=== PATIENT | male | born 1950 | race Caucasian/White ===

== ENCOUNTER 2017-11-06 12:02 | Emergency (ER) | payer MEDICARE, SELFPAY ==
[2017-11-06 12:17] VITALS: BP 167/74; PULSE 88; RESP 18; TEMP 36.8; O2SAT 98; BMI 23.6
--- NOTE | 2017-11-06 12:21 | ED.MALEGU ---
HPI - Male Genitourinary <JADE Wall - Last Filed: 11/06/17 20:20> General Chief complaint: Urogenital-Male Stated complaint: I have a UTI Time Seen by Provider: 11/06/17 12:20 Source: patient Mode of arrival: ambulatory Limitations: no limitations History of Present Illness HPI Narrative: 67-year-old male with history of AFib that is a nonsmoker here for complaint of having increased urinary frequency and some dysuria over the past 4 days. He states he is concerned that he may have a urinary tract infection. He denies having a prior history having urinary tract infections. He denies any flank pain. No abdominal pain. No nausea vomiting. He states that he is drinking plenty of fluids and is tolerating them well. He denies any other concerns or complaints at this time. Related Data Home Medications Medication Instructions Recorded Confirmed aspirin 81 mg PO QDAY #0 07/26/16 atorvastatin [Lipitor] 10 mg PO QDAY #0 07/26/16 esomeprazole magnesium [Nexium] 40 mg PO QDAY #0 07/26/16 Previous Rx's Medication Instructions Recorded nitrofurantoin monohyd/m-cryst 100 mg PO BID #14 cap 11/06/17 [Macrobid] Allergies Allergy/AdvReac Type Severity Reaction Status Date / Time No Known Drug Allergies Allergy Verified 11/06/17 12:53 Review of Systems <JADE Wall - Last Filed: 11/06/17 20:20> Constitutional Denies chills, Denies fever(s), Denies lethargy and Denies weakness Eyes Denies change in vision, Denies eye discharge, Denies irritation and Denies loss of vision ENT Ears, Nose, Mouth, and Throat: Denies change in voice, Denies neck pain and Denies sore throat Cardiovascular Denies chest pain, Denies irregular heart rhythm, Denies lightheadedness, Denies palpitations, Denies dyspnea, Denies dyspnea on exertion and Denies orthopnea Respiratory Denies cough, Denies dyspnea, Denies dyspnea on exertion and Denies wheezing Gastrointestinal Gastrointestinal: Denies abdominal pain, Denies change in bowel habits, Denies diarrhea, Denies nausea and Denies vomiting Genitourinary Reports dysuria and Reports urinary frequency Musculoskeletal Denies neck pain Integumentary/Breasts Denies pruritus, Denies erythema, Denies rash and Denies wounds Neurologic Denies confusion, Denies loss of vision and Denies weakness Psychiatric Denies anxiety, Denies confusion, Denies depression, Denies homicidal ideation and Denies suicidal ideation Endocrine Denies palpitations Allergic/Immunologic Denies wheezing Exam <JADE Wall - Last Filed: 11/06/17 20:20> Initial Vital Signs Initial Vital Signs: Vital Signs Temperature 98.3 F 11/06/17 12:17 Pulse Rate 88 11/06/17 12:17 Respiratory Rate 18 11/06/17 12:17 Blood Pressure 167/74 H 11/06/17 12:17 Pulse Oximetry 98 11/06/17 12:17 Const General: cooperative and well developed Nutritional Appearance: well nourished Orientation: alert, awake, oriented x3 and not confused HENMT Mouth: oral mucosae normal and moist mucous membranes Eyes Conjunctivae: conjunctivae normal Sclera: sclerae normal Pupils: PERRL EOM: EOM intact bilaterally Resp Effort & Inspection: normal respiratory effort, able to speak in complete sentences, no respiratory distress and no use of accessory muscles Auscultation: clear to auscultation bilaterally, no rales, no rhonchi and no wheezes Cardio Rate: regular rate Rhythm: regular rhythm Heart Sounds: no click, no gallops, no murmurs and no rubs GI Inspection: non-distended Palpation: soft, no hepatosplenomegaly, No guarding, No pulsatile mass and No tender Auscultation: normal bowel sounds General: No CVA tenderness Skin General: no rashes or lesions noted, No jaundice and No petechiae Neuro General: alert, oriented x3, gait normal and no focal motor deficits Speech: speech normal <Herbert Cortez DO - Last Filed: 11/07/17 05:41> Initial Vital Signs Initial Vital Signs: Vital Signs Temperature 98.3 F 11/06/17 12:17 Pulse Rate 88 11/06/17 12:17 Respiratory Rate 18 11/06/17 12:17 Blood Pressure 167/74 H 11/06/17 12:17 Pulse Oximetry 98 11/06/17 12:17 Course <JADE Wall - Last Filed: 11/06/17 20:20> Orders Ordered: ED Orders 11/06/17 12:18 Urine Culture Stat Urine Microscopic Stat Vital Signs - 8 hr 11/06/17 12:17 Temperature 98.3 F Pulse Rate 88 Respiratory Rate 18 Blood Pressure 167/74 H Pulse Oximetry 98 <Herbert Cortez DO - Last Filed: 11/07/17 05:41> Orders Ordered: ED Orders 11/06/17 12:18 Urine Culture Stat Urine Microscopic Stat Vital Signs - 8 hr 11/06/17 12:17 Temperature 98.3 F Pulse Rate 88 Respiratory Rate 18 Blood Pressure 167/74 H Pulse Oximetry 98 MDM - Male Genitourinary <JADE Wall - Last Filed: 11/06/17 20:20> Differential Diagnosis Likely urinary tract infection Lab Data Lab Results 11/06/17 Range/Units 12:18 Urine RBC None seen (0-5/HPF) Urine WBC 5-10/hpf H (0-5/HPF) Ur Squamous Epith Cells 0-1 /hpf Urine Bacteria Moderate (10-30) H (None) Ur Culture Indicated? Specimen cultured Micro UA Comment Not Reportable Urine Dip Bedside Urine Glucose Negative Bedside Urine Bilirubin - Negative Bedside Urine Ketone - Negative Urine Specific [place] 1.030 Bedside Urine Occult Blood - Negative Bedside Urine pH 6.0 Bedside Urine Protein +/- 15 Bedside Urine Urobilinogen - Negative Bedside Urine Nitrite - Negative Bedside Urine Leukocytes - Negative Esterase MDM Narrative Medical decision making narrative: Urinalysis indicates elevated white count. He is treated for urinary tract infection with Macrobid. Plenty of fluids. Follow up with primary care provider. For any worsening symptoms return to the emergency room. <Herbert Cortez DO - Last Filed: 11/07/17 05:41> Lab Data Lab Results 11/06/17 Range/Units 12:18 Urine RBC None seen (0-5/HPF) Urine WBC 5-10/hpf H (0-5/HPF) Ur Squamous Epith Cells 0-1 /hpf Urine Bacteria Moderate (10-30) H (None) Ur Culture Indicated? Specimen cultured Micro UA Comment Not Reportable Urine Dip Bedside Urine Glucose Negative Bedside Urine Bilirubin - Negative Bedside Urine Ketone - Negative Urine Specific [place] 1.030 Bedside Urine Occult Blood - Negative Bedside Urine pH 6.0 Bedside Urine Protein +/- 15 Bedside Urine Urobilinogen - Negative Bedside Urine Nitrite - Negative Bedside Urine Leukocytes - Negative Esterase Discharge Plan Departure Patient Disposition: Home Clinical Impression: Urinary tract infection Discharge Date/Time: 11/06/17 13:14 Interventions: ED Discharge Assessment Last Done: 11/06/17 13:13 Instructions: Urinary Tract Infection Activity Restrictions/Additional Instructions: Urinalysis indicates an elevated white count suggestive of urinary tract infection. UA placed on an antibiotic called Macrobid use as directed. Plenty of fluids. Follow up with her primary care provider. For any worsening symptoms return to the emergency room. Prescriptions: New nitrofurantoin monohyd/m-cryst [Macrobid] 100 mg capsule 100 mg PO BID Qty: 14 RF: 0 No Action atorvastatin [Lipitor] 10 MG tablet 10 mg PO QDAY Qty: 0 RF: 0 aspirin 81 MG tablet,delayed release (DR/EC) 81 mg PO QDAY Qty: 0 RF: 0 esomeprazole magnesium [Nexium] 40 MG capsule,delayed release(DR/EC) 40 mg PO QDAY Qty: 0 RF: 0 Referrals: Carissa Preciado PA-C [Primary Care Provider] - <Herbert Cortez DO - Last Filed: 11/07/17 05:41> Cosign ED Attending Anuja Attestation: I was immediately available in the department for consultation. Documentation has been reviewed. I agree with assessment and plan.
[2017-11-06 12:46] LABS: Bacteria Urine Moderate (10-30); Culture Indicated Urine Specimen Cultured; RBC Urine None Seen (0-5/HPF); Squamous Epithelial Cell Urine 0-1 /HPF; WBC Urine 5-10/HPF (0-5/HPF)
== END 2017-11-06 13:14 | disposition home or self-care (01) ==
PROVIDERS: Emergency Provider Nurse Practitioner Family; Family Provider Physical Therapist; PCP Physician Assistant
DX: N39.0 Urinary tract infection, site not specified (principal)
CPT/HCPCS: 81003; 81015; 87077; 87086; 87186; 99282

== ENCOUNTER 2024-02-11 14:53 | Emergency (ER) | payer MEDICARE, SELFPAY ==
[2024-02-11] VITALS (32 sets, daily range): BP systolic 147–200; BP diastolic 72–93; PULSE 66–93; RESP 14–32; TEMP 36.8; O2SAT 95–98; BMI 23.4
--- NOTE | 2024-02-11 15:00 | DI.RAD.S_ITS ---
PROCEDURE: XR CHEST 1V INDICATIONS: chest pain TECHNIQUE: One view of the chest was acquired. COMPARISON: [facility], , CHEST 2 VIEW, 12/29/2015, 9:16. FINDINGS: Surgical changes and devices: None. Lungs and pleura: Lungs are clear. No pleural effusions or pneumothorax. Mediastinum: Mediastinal contours appear normal. Heart size is normal. Bones and chest wall: No suspicious bony lesions. Overlying soft tissues appear unremarkable. IMPRESSION: No acute cardiopulmonary abnormality is seen. Approved by: Erick Harris M.D. on 02/11/2024 at 16:03
--- NOTE | 2024-02-11 15:04 | EKG_ITS ---
Merged With [facility] [address] [place] [address] Test Date: 2024-02-11 Pat Name: Sunil So Department: Room: Gender: Male [employer] Machine Operator: : 1950 Requested By: Order Number: [id number] Reading MD: Carl Valle MD Measurements Intervals [place] Rate: 79 P: 50 IA: 162 QRS: 14 QRSD: 90 T: 35 QT: 370 QTc: 424 Interpretive Statements Normal sinus rhythm Electronically Signed On 02-12-2024 17:06:24 PST by Carl Valle MD
[2024-02-11 15:08] LABS: Add Manual Diff / Slide Review NO; Basophils Absolute Auto 0 /uL (0-100); Basophils Percent Auto 0.5 % (0-2); Eosinophils Absolute Auto 100 /uL (0-450); Eosinophils Percent Auto 0.9 % (2-4); Hematocrit 43.5 % (41-53); Hemoglobin 14.8 g/dL (13.5-17.5); Lymphocytes Absolute Auto 2100 /uL (1100-4500); Mean Corpuscular Hemoglobin 31.1 PG (26-34); Mean Corpuscular Volume 91.6 fL (80-100); Monocytes Absolute Auto 600 /uL (0-900); Neutrophils Absolute Auto 3400 /uL (1500-7000); Neutrophils Percent Auto 54.6 % (50-75); Platelet Count 204 X10^3/uL (150-400); Red Blood Cell Count 4.74 X10^6/uL (4.5-5.9); Red Cell Distribution Width 13.9 % (11.6-14.8); White Blood Cell Count 6.2 X10^3/uL (4.5-11.0)
--- NOTE | 2024-02-11 15:11 | ED.GENADULT ---
HPI - General Adult General Chief complaint: Hypertension Stated complaint: High BP, Unsteady on Feet Time Seen by Provider: 02/11/24 15:03 History of Present Illness HPI narrative: 73-year-old gentleman with a history of reflux, hyperlipidemia, family history for coronary artery disease and no personal history of hypertension awoke just generally feeling unwell this morning and noted that his blood pressure has been significantly elevated over the course of the day. He complains that he feels slightly unsteady and also nights that he has had some left eye blurriness for the last week. Not complaining of headache or other neurologic complaints. When asked specifically about chest pain he states that he has not having any pain but there seems to be more awareness of his chest than usual. No diaphoresis, nausea, vomiting. He has never had similar symptoms. He has a history of atrial fibrillation and had an ablation in June he takes metoprolol for rate control. Related Data Home Medications Medication Instructions Recorded Confirmed aspirin 81 mg tablet,delayed 81 mg PO QDAY ##0 07/26/16 release atorvastatin 10 mg tablet (Lipitor) 10 mg PO QDAY ##0 07/26/16 esomeprazole magnesium 40 mg 40 mg PO QDAY ##0 07/26/16 capsule,delayed release (Nexium) Previous Rx's Medication Instructions Recorded nitrofurantoin 100 mg PO BID #14 caps 11/06/17 monohydrate/macrocrystals 100 mg capsule (Macrobid) Allergies Allergy/AdvReac Type Severity Reaction Status Date / Time No Known Drug Allergies Allergy Verified 11/06/17 12:53 Review of Systems Review of Systems Narrative: Pertinent positive and negative findings as per HPI Patient History Medical History (Updated 02/11/24 @ 17:26 by Krissy Padgett MD) Afib Social History Smoking Status: Never smoker Smoking Status: Never smoker alcohol intake frequency: 0-2 drinks per day Alcohol type: wine and hard liquor Exam Initial Vital Signs Initial Vital Signs: Vital Signs Pulse Rate 80 02/11/24 14:58 Blood Pressure 200/92 H 02/11/24 14:58 Pulse Oximetry 98 02/11/24 14:58 General: Healthy appearing, in no acute distress. Able to give a complete and coherent history. Well-nourished well-developed HEENT: Moist mucous membranes, normal sclera with reactive pupils, he reports decreased vision in the left eye with no specific hemianopsia and no peripheral field deficits. Neck: No JVD, supple Respiratory: Lungs are clear to auscultation, no wheezing no rales no rhonchi. Full and symmetrical air movement Cardiac: Regular rate and rhythm no murmurs no bruits Abdomen: Soft, nontender, good bowel tones, no flank pain Skin: Warm and dry, no rashes Neurologic: Grossly neurologically intact with no obvious asymmetries or abnormalities. NIH=0 Extremities: No trauma, well perfused Psych: Cooperative, appropriate insight and affect Course Orders Ordered: ED Orders 02/11/24 15:00 XR chest 1V Stat Complete Blood Count AUTO DIFF Stat Comprehensive Metabolic Panel Stat Lipase Stat Magnesium Stat NT-proBNP (BNP-Adult 18+) Stat PTT Partial Thromboplastin Maximino Stat Prothrombin Time INR Stat Troponin & CK Cardiac Panel Stat EKG-12 Lead Stat 02/11/24 15:17 CT head/brain wo con Stat Discontinued Medications Aspirin (Aspirin 81 Mg Chew Tab) 324 mg PO NOW ONE Stop: 02/11/24 15:01 Last Admin: 02/11/24 15:22 Dose: 243 mg Documented By: RED Labetalol HCl (Labetalol 20 Mg/4 Ml Syringe) 20 mg IV NOW ONE Stop: 02/11/24 15:18 Last Admin: 02/11/24 15:23 Dose: 20 mg Documented By: RED Vital Signs Vital signs: Vital Signs - 8 hr 02/11/24 14:58 02/11/24 14:58 02/11/24 15:00 Temperature Pulse Rate 80 80 Respiratory Rate Blood Pressure 200/92 H Pulse Oximetry 98 98 Oxygen Delivery Method 02/11/24 15:00 02/11/24 15:01 02/11/24 15:23 Temperature 98.3 F Pulse Rate 75 93 H Respiratory Rate 16 Blood Pressure 196/93 H 200/72 H 196/93 H Pulse Oximetry 98 Oxygen Delivery Method Room Air 02/11/24 15:30 02/11/24 15:32 02/11/24 15:32 Temperature Pulse Rate 77 Respiratory Rate 14 Blood Pressure 176/86 H 152/78 H Pulse Oximetry 95 Oxygen Delivery Method 02/11/24 15:34 02/11/24 15:34 02/11/24 15:36 Temperature Pulse Rate 74 71 Respiratory Rate 30 H 23 Blood Pressure 160/78 H Pulse Oximetry 97 96 Oxygen Delivery Method 02/11/24 15:36 02/11/24 15:38 02/11/24 15:38 Temperature Pulse Rate 69 Respiratory Rate 18 Blood Pressure 158/82 H 159/84 H Pulse Oximetry 96 Oxygen Delivery Method 02/11/24 15:40 02/11/24 15:40 02/11/24 15:42 Temperature Pulse Rate 71 70 Respiratory Rate 23 27 H Blood Pressure 150/82 H Pulse Oximetry 95 97 Oxygen Delivery Method 02/11/24 15:42 02/11/24 15:51 02/11/24 15:51 Temperature Pulse Rate 71 Respiratory Rate 19 Blood Pressure 154/88 H 154/88 H Pulse Oximetry 95 Oxygen Delivery Method 02/11/24 15:52 02/11/24 15:52 02/11/24 15:55 Temperature Pulse Rate 69 70 Respiratory Rate 19 18 Blood Pressure 156/78 H Pulse Oximetry 96 96 Oxygen Delivery Method 02/11/24 15:55 02/11/24 15:56 02/11/24 15:56 Temperature Pulse Rate 70 Respiratory Rate 28 H Blood Pressure 169/77 H 152/73 H Pulse Oximetry 97 Oxygen Delivery Method 02/11/24 15:58 02/11/24 15:58 02/11/24 16:00 Temperature Pulse Rate 70 Respiratory Rate 21 Blood Pressure 153/80 H 156/74 H Pulse Oximetry 98 Oxygen Delivery Method 02/11/24 16:00 02/11/24 16:02 02/11/24 16:02 Temperature Pulse Rate 68 68 Respiratory Rate 20 21 Blood Pressure 147/76 H Pulse Oximetry 97 96 Oxygen Delivery Method 02/11/24 16:04 02/11/24 16:04 02/11/24 16:07 Temperature Pulse Rate 68 79 Respiratory Rate 27 H 32 H Blood Pressure 156/73 H Pulse Oximetry 97 97 Oxygen Delivery Method 02/11/24 16:07 02/11/24 16:08 02/11/24 16:08 Temperature Pulse Rate 77 Respiratory Rate Blood Pressure 187/85 H 176/84 H Pulse Oximetry 96 Oxygen Delivery Method 02/11/24 16:10 02/11/24 16:10 02/11/24 16:12 Temperature Pulse Rate 73 67 Respiratory Rate Blood Pressure 174/77 H Pulse Oximetry 97 96 Oxygen Delivery Method 02/11/24 16:12 02/11/24 16:14 02/11/24 16:14 Temperature Pulse Rate 69 Respiratory Rate 23 Blood Pressure 160/75 H 159/86 H Pulse Oximetry 98 Oxygen Delivery Method 02/11/24 16:16 02/11/24 16:16 02/11/24 16:18 Temperature Pulse Rate 69 Respiratory Rate 22 Blood Pressure 161/84 H 168/74 H Pulse Oximetry 97 Oxygen Delivery Method 02/11/24 16:18 02/11/24 16:20 02/11/24 16:20 Temperature Pulse Rate 70 66 Respiratory Rate 21 23 Blood Pressure 153/74 H Pulse Oximetry 98 97 Oxygen Delivery Method 02/11/24 16:22 02/11/24 16:22 02/11/24 16:30 Temperature Pulse Rate 67 68 Respiratory Rate 23 19 Blood Pressure 153/74 H Pulse Oximetry 97 98 Oxygen Delivery Method 02/11/24 16:31 02/11/24 16:31 02/11/24 16:41 Temperature Pulse Rate 68 67 Respiratory Rate 19 Blood Pressure 153/73 H 153/73 H Pulse Oximetry 98 Oxygen Delivery Method 02/11/24 17:00 02/11/24 17:00 Temperature Pulse Rate 68 Respiratory Rate 22 Blood Pressure 169/80 H Pulse Oximetry 97 Oxygen Delivery Method Medical Decision Making Lab Data 02/11/24 15:00 02/11/24 15:00 Labs: Lab Results 02/11/24 Range/Units 15:00 WBC 6.2 (4.5-11.0) X10^3/uL RBC 4.74 (4.5-5.9) X10^6/uL Hgb 14.8 (13.5-17.5) g/dL Hct 43.5 (41-53) % MCV 91.6 (80-100) fL MCH 31.1 (26-34) PG MCHC 34.0 (30-36) % RDW 13.9 (11.6-14.8) % Plt Count 204 (150-400) X10^3/uL Neut % (Auto) 54.6 (50-75) % Lymph % (Auto) 34.0 (25-40) % [place] % (Auto) 10.0 (3-14) % Eos % (Auto) 0.9 L (2-4) % Baso % (Auto) 0.5 (0-2) % Neut # (Auto) 3400 (4794-9001) /uL Lymph # (Auto) 2100 (3125-5520) /uL [place] # (Auto) 600 (0-900) /uL Eos # (Auto) 100 (0-450) /uL Baso # (Auto) 0 (0-100) /uL PT 10.9 (9.4-12.5) SECONDS INR 1.0 (0.9-1.3) APTT 34 (25.1-36.5) SECONDS Sodium 136 L (137-145) mmol/L Potassium 4.0 (3.4-5.1) mmol/L Chloride 101 (98-107) mmol/L Carbon Dioxide 30 (22-32) mmol/L BUN 18 (9-20) mg/dL Creatinine 0.79 (0.66-1.25) mg/dL Estimated GFR > 60 (>60) mL/min BUN/Creatinine Ratio 22.8 H (6-22) Glucose 91 (80-110) mg/dL Calcium 9.6 (8.4-10.2) mg/dL Magnesium 1.8 (1.6-2.3) mg/dL Total Bilirubin 1.0 (0.2-1.3) mg/dL AST 59 (17-59) IU/L ALT 48 (<50) IU/L Alkaline Phosphatase 92 (38-126) U/L Total Creatine Kinase 110 (55-170) U/L Troponin I < 0.012 (0.01-0.034) ng/mL NT-Pro-B Natriuret Pep 40 (<125) pg/mL Total Protein 8.7 H (6.3-8.2) g/dL Albumin 4.9 (3.5-5.0) g/dL Globulin 3.8 (1.7-4.1) g/dL Albumin/Globulin Ratio 1.3 (1.0-2.8) Lipase 106 (23-300) U/L Urine Dip Bedside Urine Glucose Negative Bedside Urine Bilirubin - Negative Bedside Urine Ketone - Negative Urine Specific [place] 1.005 Bedside Urine Occult Blood - Negative Bedside Urine pH 6.5 Bedside Urine Protein - Negative Bedside Urine Urobilinogen - Negative Bedside Urine Nitrite - Negative Bedside Urine Leukocytes - Negative Esterase Point of care testing: Urine Dip Bedside Urine Glucose Negative Bedside Urine Bilirubin - Negative Bedside Urine Ketone - Negative Urine Specific [place] 1.005 Bedside Urine Occult Blood - Negative Bedside Urine pH 6.5 Bedside Urine Protein - Negative Bedside Urine Urobilinogen - Negative Bedside Urine Nitrite - Negative Bedside Urine Leukocytes - Negative Esterase Imaging Data CT scan - head: Radiologist's Impression: PROCEDURE: CT HEAD/BRAIN WO CON INDICATIONS: Left vision change and HTN TECHNIQUE: Noncontrast 4.5 mm thick angled axial sections acquired from the foramen magnum to the vertex, with coronal and sagittal reformats. For radiation dose reduction, the following was used: automated exposure control, adjustment of mA and/or kV according to patient size. COMPARISON: None. FINDINGS: Image quality: Diagnostic. CSF spaces: Basal cisterns are patent. No extra-axial fluid collections. Ventricles are normal in size and shape. Brain: No midline shift. No intracranial masses or hemorrhage. Vargas-white matter interface is normal. Moderate cerebral and cerebellar volume loss with multifocal white matter chronic ischemic change noted. Atherosclerotic calcification noted associated with cavernous segments of both internal carotid arteries. Skull and face: Calvarium and visualized facial bones are intact, without suspicious lesions. Sinuses: Visualized sinuses and mastoids are clear. IMPRESSION: Atrophy and chronic ischemic change without acute hemorrhage or mass effect Approved by: Erick Harris M.D. on 02/11/2024 at 14:53 MDM Narrative Medical decision making narrative: CC: Hypertension today, no history of hypertension at baseline, left eye decreased vision for a week, unusual chest sensation Complicating co-morbidities: Does not carry a diagnosis of hypertension, cardiac ablation for atrial fibrillation in June of this year and he has been doing well since Data collected from: patient, Differential considered: Stroke, hypertensive crisis, acute coronary syndrome, congestive heart failure, viral syndrome Exam documented above, pertinent findings include: Other than the objective left eye blurriness exam is unremarkable Lab Test results independently reviewed as above. Pertinent findings: CBC is reassured Chemistries are unremarkable Troponin is undetectable with symptoms ongoing for at least 6 hours BNP is unremarkable Independently reviewed EKG: EKG shows sinus rhythm at a rate of 79 without ischemic changes Imaging studies independently reviewed: CT head is unremarkable Chest x-ray is unremarkable Treatments: IV labetalol Discussion: Patient continues to feel well at this point. Blood pressure is beginning to slightly creep up after coming down with the IV labetalol. He is no longer having chest pain or discomfort sensation. Reviewed all of the reassuring findings with him. I do not suspect intracranial mass, stroke, acute coronary syndrome, pneumonia, cardiomyopathy. At this point I do not have a full explanation for his symptoms or why all of a sudden his blood pressure is increased significantly. I recommended that he check his blood pressure again next tomorrow morning after a good night sleep and follow up with his primary care physician. Encouraged him to return if symptoms are worse and at this point I believe he is safe for discharge home with no indication for advanced imaging or hospitalization today. Discharge Plan Departure Patient Disposition: Home Clinical Impression: Blood pressure elevated without history of HTN, Chest tightness Instructions: DI for High Blood Pressure Activity Restrictions/Additional Instructions: Thank you for coming into I did not find any significant pathology that would require hospitalization or further workup at this time. I did do a CT scan of your head due to the blurry vision, the CT scan of your head is unremarkable with no signs of masses or acute stroke. I looked for heart attack, infection, enlarged heart or other findings that might explain the chest sensation or all of a sudden elevated blood pressure. Each of those studies and tests were equally unremarkable I would recommend that you do not check your blood pressure again until tomorrow morning. Please see if you can get a good night sleep. Keep track of blood pressures and do schedule an appointment to follow up with your primary care physician if there continuously elevated. If you find that you are getting worse or develop any new symptoms, please feel free to return to the emergency department for further evaluation. Prescriptions: No Action atorvastatin [Lipitor] 10 MG tablet 10 mg PO QDAY Qty: 0 aspirin 81 MG tablet,delayed release (DR/EC) 81 mg PO QDAY Qty: 0 esomeprazole magnesium [Nexium] 40 MG capsule,delayed release(DR/EC) 40 mg PO QDAY Qty: 0 nitrofurantoin monohyd/m-cryst [Macrobid] 100 mg capsule 100 mg PO BID Qty: 14 0RF Rx Instructions: must administer with a meal/food Referrals: Carissa Preciado PA-C [Primary Care Provider] - Stand Alone Forms: Patient Portal/API/Survey
[2024-02-11 15:15] LABS: Prothrombin Time 10.9 SECONDS (9.4-12.5)
[2024-02-11 15:17] LABS: PTT Partial Thromboplastin Tim 34 SECONDS (25.1-36.5)
--- NOTE | 2024-02-11 15:17 | DI.CT.S_ITS ---
PROCEDURE: CT HEAD/BRAIN WO CON INDICATIONS: Left vision change and HTN TECHNIQUE: Noncontrast 4.5 mm thick angled axial sections acquired from the foramen magnum to the vertex, with coronal and sagittal reformats. For radiation dose reduction, the following was used: automated exposure control, adjustment of mA and/or kV according to patient size. COMPARISON: None. FINDINGS: Image quality: Diagnostic. CSF spaces: Basal cisterns are patent. No extra-axial fluid collections. Ventricles are normal in size and shape. Brain: No midline shift. No intracranial masses or hemorrhage. Vargas-white matter interface is normal. Moderate cerebral and cerebellar volume loss with multifocal white matter chronic ischemic change noted. Atherosclerotic calcification noted associated with cavernous segments of both internal carotid arteries. Skull and face: Calvarium and visualized facial bones are intact, without suspicious lesions. Sinuses: Visualized sinuses and mastoids are clear. IMPRESSION: Atrophy and chronic ischemic change without acute hemorrhage or mass effect Approved by: Erick Harris M.D. on 02/11/2024 at 14:53
[2024-02-11 15:19] LABS: Alanine Aminotransferase 48 IU/L (<50); Albumin 4.9 g/dL (3.5-5.0); Albumin Globulin Ratio 1.3 (1.0-2.8); Alkaline Phosphatase 92 U/L (38-126); Aspartate Aminotransferase 59 IU/L (17-59); BUN Creatinine Ratio 22.8 (6-22); Blood Urea Nitrogen 18 mg/dL (9-20); Calcium 9.6 mg/dL (8.4-10.2); Carbon Dioxide 30 mmol/L (22-32); Chloride 101 mmol/L (98-107); Creatine Kinase 110 U/L (55-170); Estimated Glomerular Filt Rate > 60 mL/min (>60); Globulin 3.8 g/dL (1.7-4.1); Glucose 91 mg/dL (80-110); HEMOLYSIS < 15 (0-50); Lipase 106 U/L (23-300); Magnesium 1.8 mg/dL (1.6-2.3); Sodium 136 mmol/L (137-145); Total Protein 8.7 g/dL (6.3-8.2)
[2024-02-11] MEDS: ASPIRIN 81 MG CHEW TAB 324 MG PO (15:22)
[2024-02-11] MEDS: LABETALOL 20 MG/4 ML SYRINGE IV (15:23)
[2024-02-11 15:31] LABS: NT-proBNP (BNP-Adult 18+) 40 pg/mL (<125); Troponin I < 0.012 ng/mL (0.01-0.034)
== END 2024-02-11 17:35 | disposition home or self-care (01) ==
PROVIDERS: Emergency Provider Emergency Medicine; Family Provider Physical Therapist; PCP Physician Assistant
DX: R03.0 Elevated blood-pressure reading, without diagnosis of hypertension (principal); R07.89 Other chest pain; H53.8 Other visual disturbances
CPT/HCPCS: 36415; 70450; 71045; 80053; 81003; 82550; 83690; 83735; 83880; 84484; 85025; 85610; 85730; 93005; 93010; 96374; 99284